=== PATIENT | male | born 1970 | race Caucasian/White ===

== ENCOUNTER 2019-01-10 20:38 | Emergency (ER) | payer BC ==
[2019-01-10 20:56] VITALS: TEMP 97.3
[2019-01-10] MEDS ORDERED: ONDANSETRON INJ 4 MG/2 ML VIAL IV ONE (21:03)
[2019-01-10] MEDS ORDERED: SODIUM CHLORIDE 0.9% 1000ML 1,000 ML IVS ONE ×2 (21:03)
--- NOTE | 2019-01-10 21:47 | ED.PDOC ---
History of Present Illness - General Chief Complaint: GI Problem Stated Complaint: N/V x's 3 days Time Seen by Provider: 01/10/19 20:56 Source: patient, RN notes reviewed, Vital Signs reviewed, RN/MD Additional Information: Patient presents for evaluation of vomiting x 3 days. He denies any dysuria, fevers, chills, constipation, or diarrhea. He has not been able to tolerate anything today. He states that he has had a nonproductive cough for the past week. He denies any shortness of breath. He does state that he has also had posterior nasal drainage and upper respiratory congestion. He is not using his Flonase currently. He otherwise denies any recent sick contacts. He has a previous cholecystectomy. He also has a history of Gilbert's syndrome. - History of Present Illness Allergies/Adverse Reactions: Allergies NO KNOWN ALLERGY Allergy (Verified 01/10/19 21:42) Home Medications: Ambulatory Orders Amlodipine Besylate [Norvasc] 5 mg PO DAILY 01/10/19 Aspirin [Aspirin Adult Low Dose] 81 mg PO DAILY 01/10/19 Carvedilol 12.5 mg PO DAILY 01/10/19 Cetirizine HCl [All Day Allergy] 10 mg PO DAILY 01/10/19 Clonidine [Eqyuqrag-Ssn-2] 0.1 mg TD PRN PRN 01/10/19 Escitalopram Oxalate 20 mg PO DAILY 01/10/19 Hydrochlorothiazide 25 mg PO DAILY 01/10/19 Lisinopril 40 mg PO DAILY 01/10/19 Ondansetron Odt [Zofran ODT] 4 mg PO Q8H PRN #10 tab 01/10/19 Review of Systems - Review of Systems Constitutional: Denies: chills, fever EENTM: States: nose congestion, throat pain Respiratory: States: cough. Denies: short of breath Cardiology: Denies: chest pain Gastrointestinal/Abdominal: States: nausea, vomiting. Denies: abdominal pain, constipation, diarrhea Genitourinary: Denies: dysuria, frequency Musculoskeletal: Denies: joint pain, joint swelling, muscle pain, neck pain Neurological: Denies: headache Past Medical History (General) - Patient Medical History Hx Seizures: No Hx Stroke: No Hx Dementia: No Hx Asthma: No Hx of COPD: No Hx Cardiac Disorders: No Hx Congestive Heart Failure: No Hx Pacemaker: No Hx Hypertension: Yes Hx Thyroid Disease: No Hx Diabetes: No Hx Gastroesophageal Reflux: No Hx Renal Disease: No Hx Cancer: No Hx of HIV: No Hx Hepatitis C: No Hx MRSA: No Surgical History: cholecystectomy - Vaccination History Hx Tetanus, Diphtheria Vaccination: Yes Hx Influenza Vaccination: Yes Hx Pneumococcal Vaccination: No - Social History Hx Tobacco Use: No Hx Alcohol Use: No Family Medical History - Family History Mother Family History: Unknown Physical Exam - Physical Exam General Appearance: Alert, Comfortable, No apparent distress, Well Developed, Well Groomed, Well Nourished Eye Exam: bilateral normal Ears, Nose, Throat: hearing grossly normal Neck: full range of motion, supple, normal inspection Respiratory: lungs clear, normal breath sounds, no respiratory distress, no accessory muscle use Cardiovascular/Chest: normal peripheral pulses, regular rate, rhythm, no edema, no gallop, no JVD Peripheral Pulses: radial,right: 2+, radial,left: 2+ Gastrointestinal/Abdominal: normal bowel sounds, non tender, soft Neurologic: alert, normal mood/affect, oriented x 3 Progress - Progress Progress: DDx: Gastritis, viral syndrome, pneumonia, strep pharyngitis, pancreatitis, t ransaminitis, GARFIELD, Dehydration, Allergic Rhinitis 01/10/19 21:48 Patient updated on lab work. He is feeling better. He will be PO challenged. 01/10/19 22:09 Patient presented for evaluation of nausea and vomiting. He was overall well appearing and non-toxic. He was hemodynamically stable. He had no rales or rhonchi on exam to suggest underlying pneumonia. He had no focal abdominal tenderness and had no signs of strep pharyngitis on exam. His symptoms are suggestive of a viral syndrome and allergic rhinitis contributing to PND. He had no leukocytosis. There was signs of GARFIELD and he was given 2L IV fluids. He was able to tolerate PO after Zofran. He did have an elevation in bilirubin, however he has no abdominal tenderness. This is likely secondary to his Gilbert's Syndrome. Patient was feeling drastically better after fluids and IV Zofran. He will be discharged home with Rx for PO Zofran. - Results/Orders Results/Orders: 01/10/19 21:03 Sodium Chloride 0.9% 1000ML [Ns 1000 ml] 1,000 ml IVS ONCE Sodium Chloride 0.9% 1000ML [Ns 1000 ml] 1,000 ml IVS ONCE Laboratory Results - last 24 hr 01/10/19 01/10/19 21:02 21:03 WBC 6.4 RBC 6.01 Hgb 17.6 Hct 52.8 H MCV 87.8 MCH 29.2 MCHC 33.2 RDW 15.9 H Plt Count 232 MPV 7.3 L Absolute Neuts (auto) 4.30 Absolute Lymphs (auto) 1.20 Absolute Monos (auto) 0.60 Absolute Eos (auto) 0.20 Absolute Basos (auto) 0.00 Neutrophils % 67.6 Lymphocytes % 18.9 L Monocytes % 10.1 H Eosinophils % 2.8 Basophils % 0.6 Sodium 133 L Potassium 4.2 Chloride 94 L Carbon Dioxide 29 Anion Gap 14.2 BUN 35 H Creatinine 1.48 H BUN/Creatinine Ratio 23.6 H Random Glucose 96 Serum Osmolality 274.2 L Calcium 9.1 Total Bilirubin 2.1 H* AST 33 ALT 44 Alkaline Phosphatase 66 Serum Total Protein 8.0 Albumin 4.5 Globulin 3.5 Albumin/Globulin Ratio 1.3 Departure - Departure Clinical Impression: Cough Vomiting Qualifiers: Vomiting type: unspecified Vomiting Intractability: non-intractable Nausea presence: with nausea Qualified Code(s): R11.2 - Nausea with vomiting, unspecified Allergic rhinitis Qualifiers: Allergic rhinitis trigger: unspecified Allergic rhinitis seasonality: unspecified Qualified Code(s): J30.9 - Allergic rhinitis, unspecified Time of Disposition: 22:03 Disposition: Discharge to Home or Self Care Condition: Good Departure Forms: ED Discharge - Pt. Copy, Patient Portal Self Enrollment Instructions: Nausea and Vomiting, Adult (DC) Diet: bland diet Referrals: JALEN MUELLER [Primary Care Provider] - 1-2 Weeks Prescriptions: Ondansetron Odt [Zofran ODT] 4 mg PO Q8H PRN #10 tab PRN Reason: Nausea Home Medications: Ambulatory Orders Amlodipine Besylate [Norvasc] 5 mg PO DAILY 01/10/19 Aspirin [Aspirin Adult Low Dose] 81 mg PO DAILY 01/10/19 Carvedilol 12.5 mg PO DAILY 01/10/19 Cetirizine HCl [All Day Allergy] 10 mg PO DAILY 01/10/19 Clonidine [Xqxfilak-Ygy-4] 0.1 mg TD PRN PRN 01/10/19 Escitalopram Oxalate 20 mg PO DAILY 01/10/19 Hydrochlorothiazide 25 mg PO DAILY 01/10/19 Lisinopril 40 mg PO DAILY 01/10/19 Ondansetron Odt [Zofran ODT] 4 mg PO Q8H PRN #10 tab 01/10/19 Comments: Alessandro Tse D.O. [facility] #[id number]
[2019-01-10 22:02] VITALS: BP 123/82; O2SAT 98
== END 2019-01-10 22:20 | disposition home or self-care (01) ==
LOC: ER 20:38
DX: R11.2 Nausea with vomiting, unspecified (principal); R05 Cough; J30.9 Allergic rhinitis, unspecified; E80.4 Gilbert syndrome; I10 Essential (primary) hypertension; Z90.49 Acquired absence of other specified parts of digestive tract; Z79.82 Long term (current) use of aspirin; Z79.899 Other long term (current) drug therapy
CPT/HCPCS: 80053; 85025; J2405; J7030